=== PATIENT | female | born 1990 | race Caucasian/White ===

== ENCOUNTER 2019-11-05 06:29 | Emergency (ER) | payer MEDICAID ==
[~2019-11-05] VITALS: Ht 162.6 cm; Wt 70.3 kg
[2019-11-05 06:32] VITALS: BP_SYST 116
--- NOTE | 2019-11-05 06:32 | NUR ---
PLACE IN BED 7. HERE FOR COUGH PRODUCTIVE OF YELLOWISH SPUTUM, NASAL CONGESTION/RUNNY NOSE,RIGH EARACHE, MUFFLED HEARING ON THE RIGHT EAR,CHILLS. DENIES FEVER. PT.IS APPROXIMATELY 36-37 WEEKS . [place] RECENT TRAVEL [place]IDE [place].
--- NOTE | 2019-11-05 06:38 | NUR ---
ER-MD CAME BY BEDSIDE TO EVALUATE PT.
--- NOTE | 2019-11-05 06:45 | NUR ---
HEART TONE CHECKED BY LABOR AND TRANSPORT NURSE. [id number].
--- NOTE | 2019-11-05 07:14 | NUR ---
DISCHARGED STABLE. PRESCRIPTION,VERBAL AND WRITTEN AFTECARE INSTRUCTIONS GIVEN. VERBALIZED UNDERSTANDING.
[2019-11-05 07:18] VITALS: BP_SYST 116
== END 2019-11-05 07:14 | disposition home or self-care (01) ==
LOC: SED 06:29
DX: O99.513 Diseases of the respiratory system complicating pregnancy, third trimester (principal); J06.9 Acute upper respiratory infection, unspecified; H60.91 Unspecified otitis externa, right ear; Z3A.39 39 weeks gestation of pregnancy
CPT/HCPCS: 99283

== ENCOUNTER 2022-06-06 13:42 | Emergency (ER) | payer MEDICAID ==
--- NOTE | 2022-06-06 14:00 | NUR ---
CALL TO [facility] NO ANSWER
--- NOTE | 2022-06-06 16:28 | NUR ---
LAB TO WAITING ROOM PATIENT NOT IN WAITING ROOM
--- NOTE | 2022-06-06 16:29 | NUR ---
US TO WAITING ROOM NO ANSWER
== END 2022-06-06 16:29 | disposition left against medical advice (07) ==
LOC: SED 13:42
DX: O21.9 Vomiting of pregnancy, unspecified (principal); Z3A.10 10 weeks gestation of pregnancy; Z88.0 Allergy status to penicillin; Z53.21 Procedure and treatment not carried out due to patient leaving prior to being seen by health care provider

== ENCOUNTER 2022-06-14 08:16 | Emergency (ER) | payer MEDICAID ==
[~2022-06-14] VITALS: Ht 162.6 cm; Wt 59.0 kg
[2022-06-14 08:31] VITALS: BP_SYST 141
[2022-06-14] MEDS ORDERED: ONDANSETRON HCL 4 MG/2 ML VIAL IVP ONE (08:45)
--- NOTE | 2022-06-14 08:46 | NUR ---
PATIENT TO ED WITH C/O NAUSEA AND VOMITING AND UPPER ABDOMINAL PAIN DESCRIBED SQUEEZING FOR TWO DAYS. PATIENT VERY EMOTIONAL AND CRYING AND STATES THAT SHE IS 13 WKS AND THIS HAS OCCURRED FOR THE ENTIRE 14 WEEKS. MD AT BEDSIDE AT THIS TIME TO SEE PATIENT. WARM BLACKET RENDERED ALONG WITH COMFORT MEASURES, IV LINE INSERTED AND LABS DRAWN AND SENT. WILL CONTINUE TO MONITOR AND IMPLEMENT COMFORT MEASURES.
[2022-06-14] MEDS ORDERED: NACL 0.9% 1,000 ML IV ONE (09:00)
--- NOTE | 2022-06-14 09:01 | NUR ---
DR VARGAS IN ROOM FOR EXAM
[2022-06-14 09:04] LABS: BASOPHILS % (AUTO) 0.4 % (0.0-2.0); EOSINOPHILS # (AUTO) 0.2 K/uL (0.0-0.4); EOSINOPHILS % (AUTO) 2.1 % (0.0-4.0); HEMATOCRIT 36.1 % (36-48); HEMOGLOBIN 12.5 g/dL (12.0-16.0); LYMPHOCYTES # (AUTO) 1.5 K/uL (1.0-5.5); LYMPHOCYTES % (AUTO) 16.5 % (20.5-51.5); MEAN CORPUSCULAR HEMOGLOBIN 31 pg (27-31); MEAN CORPUSCULAR HGB CONC 35 % (32-36); MEAN CORPUSCULAR VOLUME 89 fL (79.0-98.0); MONOCYTES # (AUTO) 0.6 K/uL (0.0-1.0); MONOCYTES % (AUTO) 6.2 % (1.7-9.3); NEUTROPHILS % (AUTO) 74.8 % (40.0-70.0); PLATELET COUNT (AUTO) 264 K/uL (130-430); RED BLOOD CELL COUNT(AUTO) 4.08 MIL/uL (4.2-6.2); RED CELL DISTRIBUTION WIDTH 12.3 % (9.0-15.0); WHITE BLOOD COUNT (AUTO) 9.3 K/uL (4.8-10.8)
--- NOTE | 2022-06-14 09:08 | NUR ---
PATIENT ADMINISTERED ZOFRAN IVP AND NS UP AND INFUSING AT BOLUS RATE. PATIENT UP TO RESTROOM FOR URINE SPECIMEN.
[2022-06-14 09:18] LABS: CALCIUM 9.5 mg/dL (8.4-11.0); CREATININE 0.55 mg/dL (0.55-1.30); POTASSIUM 3.4 mmol/L (3.5-5.1)
[2022-06-14 09:24] LABS: ALBUMIN 4.3 g/dL (3.4-4.8); TOTAL BILIRUBIN 0.5 mg/dL (0.0-1.0)
--- NOTE | 2022-06-14 09:24 | NUR ---
URINE OBTAINED AND IN LAB AT THIS TIME
--- NOTE | 2022-06-14 09:48 | NUR ---
PATIENT CONTINUES TO CRY AND MOAN IN PAIN. MD NOTIFIED. NO RELIEF AT THIS TIME
--- NOTE | 2022-06-14 10:03 | NUR ---
PATIENT WAITING FOR ULTRASOUND AT THIS TIME.
[2022-06-14 10:14] LABS: BILIRUBIN,URINE NEGATIVE (NEGATIVE); BLOOD, URINE NEGATIVE (NEGATIVE); CLARITY/URINE SL CLOUDY (CLEAR); COLOR,URINE YELLOW (YELLOW); GLUCOSE,URINE NEGATIVE (NEGATIVE); KETONES,URINE 1+ (NEGATIVE); LEUKOCYTE ESTERASE ,URINE NEGATIVE (NEGATIVE); NITRITE, URINE POSITIVE (NEGATIVE); PH,URINE 7.5 (5.0-8.0); PROTEIN URINE NEGATIVE (NEGATIVE); UROBILINOGEN,URINE 0.2 (0.2-1.0)
[2022-06-14 10:15] LABS: BACTERIA,URINE MANY /HPF (None Seen); MUCUS,URINE None Seen /LPF (None Seen); RBC,URINE 0-3 /HPF (0-3); WBC,URINE 0-3 /HPF (0-3)
[2022-06-14] MEDS ORDERED: MORPHINE 4 MG INJ. 4 MG/ML VIAL IVP ONE (10:15)
--- NOTE | 2022-06-14 10:22 | NUR ---
PATIENT ADMINISTERED MORPHINE IVP AT THIS TIME, NORMAL SALINE COMPLETED. WILL CONTINUE TO MONITOR PATIENT. PATIENT NO LONGER CRYING OUT IN PAIN.
--- NOTE | 2022-06-14 11:23 | NUR ---
ULTRASOUND COMPLETED PATIENT REFUSED TO BE ADMITTED DUE TO SALES REPRESENTATIVE SUPERVISOR
[2022-06-14] MEDS ORDERED: METOCLOPRAMIDE HCL 10 MG/2 ML VIAL IVP ONE (12:15)
--- NOTE | 2022-06-14 12:39 | NUR ---
PATIENT ADMINISTERED REGLAN IV AT THIS TIME, PATIENT YELLING OUT "I WANT TO GO HOME". AWARE
--- NOTE | 2022-06-14 12:40 | NUR ---
PATIENT REFUSING VITAL SIGNS AT THIS TIME
[2022-06-14 12:45] VITALS: BP_SYST 120
--- NOTE | 2022-06-14 13:06 | NUR ---
Patient given written and verbal discharge instructions and verbalizes understanding. ER MD discussed with patient the results and treatment provided. Patient in stable condition. ID arm band removed. IV catheter removed intact and dressing applied, no active bleeding. Rx of given. Patient educated on pain management and to follow up with PMD. Pain Scale . Opportunity for questions provided and answered. Medication side effect fact sheet provided.Patient crying to go home, refuses vs at this time, refused to stay in hospital.
[2022-06-14] MEDS ORDERED: CEPH250C PO (13:07)
[2022-06-14] MEDS ORDERED: METO-290 PO (13:07)
== END 2022-06-14 13:06 | disposition home or self-care (01) ==
LOC: SED 08:16
DX: O23.41 Unspecified infection of urinary tract in pregnancy, first trimester (principal); N39.0 Urinary tract infection, site not specified; O21.9 Vomiting of pregnancy, unspecified; Z3A.01 Less than 8 weeks gestation of pregnancy; Z88.0 Allergy status to penicillin; Z79.899 Other long term (current) drug therapy; Z20.822 Contact with and (suspected) exposure to COVID-19
CPT/HCPCS: 99285; 96374; 76700; 76805; 96375; 96361; 87426; 80053; 81000; 84702; 83690; 85025; 87086; 36415; 93005; J2765; J2405; J2270; J7030